=== PATIENT | female | born 1960 | race Caucasian/White ===

== ENCOUNTER 2019-12-11 08:00 | Outpatient (RCR) | payer OTHER, SELFPAY ==
[2019-10-01 14:00] VITALS: BP_SYST 100
--- NOTE | 2019-10-01 15:25 | PTOPEVAL ---
PHYSICAL THERAPY EVALUATION AND PLAN OF CARE 10-01-2019 The PT evaluation was completed for the diagnosis of edema and pain in L arm. The plan of treatment is scheduled 1-3x/week for 6 weeks. Thank you for referring Mrs. Gutierrez to [facility]. Please review, sign, date and return this plan of care KEY. I agree with and certify that the following plan of care is medically necessary. Referring Physician Date Attending Provider: Dr. 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 Cardiovascular History Hx Hypercholesterolemia Yes: meds Hx Hypertension Yes: meds Hx Mitral Valve Prolapse Yes: history of, but no signs on recent testing Respiratory History Hx Asthma Yes: cold induced; have inhaler Gastrointestinal History Hx Gastrointestinal Disorders No Significant History Genitourinary History Hx Bladder Surgery Yes: bladder sling Musculoskeletal History Hx Orthopedic Surgery Yes: R shoulder arthroscopy Hematological History Hx Hematological Disorders No Significant History Endocrine History Hx Endocrine Disorders No Significant History HEENT History Hx HEENT Disorders No Significant History Reproductive History Hx Hysterectomy Yes Evaluation Information Problem Diagnosis lymphedema in L arm Onset 09-20-19 Subjective Information increase with chemotherapy Query Text:As Reported By Patient/ Family Previous Treatments Previous Treatments For This Problem no previous PT Prior Level of Function Activity Level (Last 3 Months) 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
--- NOTE | 2019-10-16 08:03 | PCPTNOTE ---
Pt called and cancelled due to illness.
--- NOTE | 2019-11-06 08:53 | PTOPEVAL ---
PHYSICAL THERAPY RE-EVALUATION AND UPDATED PLAN OF CARE 11-06-2019 Mrs. Gutierrez has received 10 Physical Therapy sessions, from October 01 to today, for the diagnosis of L UE and breast lymphedema. Treatment has included: manual lymph drainage, L UE exercises, kinesiotape to facilitate lymph flow and education to pt for home exercises, lymphedema care and self manual lymph drainage. 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 The circumferential measurement of her arm has increased 15.5 cm. Pat has completed her chemotherapy. Her activity level has increased--returned to working from home and doing more home activities. She has ordered a Circ Aid reduction arm kit and it should arrive soon, to start compression over the L arm. She is pleased with her improvements and is motivated to continue with therapy treatments. PT is to continue 2x/week for 5 weeks. Thank you for referring Pat Gutierrez to [facility]. Please review, sign, date and return this plan of care KEY. I agree with and certify that the following plan of care is medically necessary. Referring Physician Date Attending Provider: Dr. 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 Cardiovascular History Hx Hypercholesterolemia Yes: meds Hx Hypertension Yes: meds Hx Mitral Valve Prolapse Yes: hisotry of, but no signs on recent testing Respiratory History Hx Asthma Yes: cold induced; have inhaler Gastrointestinal History Hx Gastrointestinal Disorders No Significant History Genitourinary History Hx Bladder Surgery Yes: bladder sling Musculoskeletal History Hx Orthopedic Surgery Yes: R shoulder arthroscopy Hematological History Hx Hematological Disorders No Significant History Endocrine History Hx Endocrine Disorders No Significant History HEENT History Hx HEENT Disorders No Significant History Reproductive History Hx Hysterectomy Yes Evaluation Information Problem Subjective Information Pat reports: shoulder is Query Text:As Reported By Patient/ stronger and moving better; Family have ordered the compression sleeve and hand piece and will be 7-10 days; therapy has really helped; arm swelling varies; want to continue
--- NOTE | 2019-12-11 08:46 | PTOPEVAL ---
PHYSICAL THERAPY DISCHARGE 12-11-2019 Ms. Gutierrez has received 19 PT sessions, from Oct 01 to today, for the diagnosis of L UE and breast lymphedema. Compared to the last reevaluation: circumference of her L arm has decreased by 17.2 cm; she has obtained and has good fit with compression sleeve and glove with 20-30 mmHg compression and just received a glove with 30-40 mmHg compression; increased L shoulder ROM and strength, increased underliner strength and indep with self massage, compression garments, skin monitoring, shoulder exercises; skin integrity has improved over breast and L arm. She continues to have edema over dorsum of hand and slight fibrosis and redness over anterior forearm and lower breast. The PT goals were achieved. Pat is independent with her home exercises and self care of lymphedema at this time. Thank you for referring Pat Gutierrez to [facility]. Please review, sign, date and return this discharge KEY. I agree with and certify that the following plan of care is medically necessary. Referring Physician Date Attending Provider: Dr. Wilmer Hogan *PT Outpatient Discharge Document 12/11/19 08:06 URVASHI (Rec: 12/11/19 08:45 [email or web address] [email or web address]) Subjective Information Betty states: agrees to discharge from PT; feels comfortable with doing everything at home on her own Pain Assessment Timing of Pain Assessment Timing of Pain Assessment Assessment Self Report Self Report Pain Level 0 Pain Score Pain Score 0: Self Report Additional Pain Score Comments hand tight due to swelling, not painful Upper Extremity Range of Motion Scapular/ Shoulder Range of Motion Left Shoulder Flexion - Active 140 Shoulder Abduction - Active 140 Shoulder Medial Rotation - Active fingers to scapula Query Text:Reach Behind the Back Shoulder Lateral Rotation - Active palm to back of head Query Text:Reach Behind the Head Scapular/Shoulder Range of Motion no pain with ROM of shoulder; Comments elbow, wrist and hand WNL without pain Upper Extremity Muscle Strength Testing General Upper Extremity Strength Gross Upper Extremity Strength Comments standing L shoulder with hand wt: flexion 4# x 10 reps; abduction 3# x 10 reps underliner dynamometer 3rd slot 50#; Lymphedema Evaluation Skin Inspection Location Left Breast,Left Upper Extremity Skin Observations Hyperpigmentation,[place],Shiny, Dry, Pale Skin Palpation Findings Warm Skin Temperature,Pitting Edema Tissue Texture Firm Lymphedema Stage II Axillary Webbing Present Yes Skin Inspection Comment min redness and peau [place]
== END 2019-12-11 15:47 | disposition home or self-care (01) ==
LOC: ANHPT 08:00
DX: C50.912 Malignant neoplasm of unspecified site of left female breast (principal); C50.812 Malignant neoplasm of overlapping sites of left female breast; C77.3 Secondary and unspecified malignant neoplasm of axilla and upper limb lymph nodes; I87.2 Venous insufficiency (chronic) (peripheral)
CPT/HCPCS: 97110; 97140; 97161; 97162

== ENCOUNTER 2020-11-18 12:30 | Outpatient (RCR) | payer OTHER, SELFPAY ==
--- NOTE | 2020-10-12 14:11 | PTOPEVAL ---
PHYSICAL THERAPY EVALUATION AND PLAN OF CARE 10-12-20 Thank you for referring Pat Gutierrez to [facility], for the diagnosis of L UE lymphedema.? Pat is scheduled to be seen for therapy? 2-3 x/week for 5 weeks. Treatment is to start at 3x/week for compression wraps and decrease to 2x/week as able. Please review, sign, date and return this plan of care KEY. I agree with and certify that the following plan of care is medically necessary. 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 Cardiovascular History Hx Hypercholesterolemia Yes: meds Hx Hypertension Yes: meds Hx Mitral Valve Prolapse Yes: history of, but no signs on recent testing Respiratory History Hx Asthma Yes: cold induced; have inhaler Gastrointestinal History Hx Gastrointestinal Disorders No Significant History Genitourinary History Hx Bladder Surgery Yes: bladder sling Musculoskeletal History Hx Orthopedic Surgery Yes: R shoulder arthroscopy Hematological History Hx Hematological Disorders No Significant History Endocrine History Hx Endocrine Disorders No Significant History HEENT History Hx HEENT Disorders No Significant History Reproductive History Hx Hysterectomy Yes Other History Hx Other Medical Conditions Yes: COVID- was ill for 2 weeks, January 2020 Evaluation Information Problem Diagnosis L UE lymphedema Onset Sep 2020 Prior Level of Function Activity Level (Last 3 Months) Occupation retired/disability Hand Dominance Right Activity of Daily Living Ability Independent Indoor/Home Mobility Independent Community Mobility Independent Stairs Ability Independent Functional Cognition (Planning, Shopping Independent , Taking Medications) Cooking Yes Cleaning Yes Laundry Yes Shopping Yes Driving Yes Home Setting Home Type House Living Situation Alone Comments Additional Prior Level of Function able to do all sue
--- NOTE | 2020-11-04 16:18 | PCPTNOTE ---
faxed information to [employer] for axilla pad and Bellisse Bra, to see if insurance covers the compression for trunk.
--- NOTE | 2020-11-16 13:51 | PCPTNOTE ---
Pt called and canceled due to illness.
[2020-11-18 12:30] VITALS: BP_SYST 105
--- NOTE | 2020-11-18 13:22 | PTOPEVAL ---
PHYSICAL THERAPY DISCHARGE 11-17-20 Refer to the clinical summary below, for her status with today's discharge, compared to the initial evaluation. Discharge PT services. Thank you for referring Pat Gutierrez to [facility].? Please review, sign, date and return this Discharge report KEY. I agree with and certify that the following plan of care is medically necessary. Referring Physician Date Referring Provider: Armand Lazcano MD Document 11/18/20 12:30 URVASHI (Rec: 11/18/20 13:22 URVASHI [id number]) Assessment Status Discharge Subjective Information Pat reports: compression Query Text:As Reported By Patient/ sleeve is doing good- some Family discomfort in elbow when bending elbow to hold book to read--try to position book on a pillow so do not have to hold it; no pain in shoulder unless overextend it and stretch too far; doing exercises at home; still having problems with diarrhea and side effects of the new meds. Pain Assessment Timing of Pain Assessment Timing of Pain Assessment Assessment Pain Scale Pain Scale Used Numeric (1 - 10) Self Report Pain Assessment Left Arm(s) Reported Pain Level 0 Pain Description Tightness Pain Frequency Chronic,Intermittent Other Pain Description pinch in anterior shoulder with movement and stretching Lowest Pain Intensity 0 Greatest Pain Intensity 6 Pain Aggravating Factors Exercise/Activity Pain Score Pain Score 0: Self Report Interventions Used Interventions Used By Clinicians Education Upper Extremity Range of Motion Scapular/ Shoulder Range of Motion Left Shoulder Flexion - Active 120 Shoulder Flexion - Passive 135 Shoulder Abduction - Active 100 Shoulder Abduction - Passive 105 Shoulder Medial Rotation - Active palm above waist Query Text:Reach Behind the Back Shoulder Lateral Rotation - Active palm to behind ear Query Text:Reach Behind the Head Lymphedema Evaluation Skin Inspection Location Left Upper Extremity,Left Anterior Lower Quadrant,Left Anterior Upper Quadrant Lymphedema Stage II Skin Inspection Comment using: compression bra, swell pad, custom L arm sleeve and glove; at night, is putting on compression wraps; home
--- NOTE | 2020-12-23 10:56 | PCPTNOTE ---
Addendum entered by Beena Chavez, PT 12/23/20 11:00: This note is for insurance purposes. Original Note: Pat Gutierrez requires a custom compression sleeve and glove due to the off the shelf garments were not managing her lymphedema. She has a small wrist and larger upper arm, so they did not fit her correctly. She requires a compression bra, with swell pad, to manage the lymphedema over her lateral trunk and upper chest. Sincerely, Beena Chavez, PT, [place], [place] [phone]
== END 2020-11-21 13:42 | disposition home or self-care (01) ==
LOC: ANHPT 12:30
DX: I89.0 Lymphedema, not elsewhere classified (principal); C50.812 Malignant neoplasm of overlapping sites of left female breast; C77.3 Secondary and unspecified malignant neoplasm of axilla and upper limb lymph nodes
CPT/HCPCS: 29581; 97016; 97110; 97140; 97162